=== PATIENT | female | born 1985 | race Hispanic/Latino ===

== ENCOUNTER 2020-04-02 13:27 | Emergency (ER) | payer MEDICAID ==
[2020-04-02 14:02] LABS: #Basophils 0.1 thou/uL (0.0-0.2); #Eosinphils 0.1 thou/uL (0.0-0.7); #Lymphocytes 3.2 thou/uL (1.20-3.40); #Monocytes 0.5 thou/uL (0.11-0.59); #Neutrophils 6.7 thou/uL (1.40-6.50); %Basophils 0.5 % (0.0-1.0); %Eosinophils 1.3 % (0.0-10.0); %Lymphocytes 29.9 % (21.0-51.0); %Monocytes 4.4 % (0.0-10.0); %Neutrophils 63.9 % (42.0-75.0); Hemoglobin 14.1 g/dL (12.0-16.0); Mean Corpuscular Hemoglobin 30.8 pg (27.0-31.0); Mean Corpuscular Volume 90.4 fL (78.0-98.0); Mean Platelet Volume 8.8 fL (7.4-10.4); Platelet Count 278 thou/uL (130-400); RBC Distribution Width 11.6 % (11.5-14.5); White Blood Cell (WBC) Count 10.5 thou/uL (4.8-10.8)
--- NOTE | 2020-04-02 14:46 | ULT ---
TRANSVAGINAL PELVIC ULTRASOUND WITH GREGG SCALE AND COLOR FLOW AND SPECTRAL DOPPLER IMAGING: HISTORY: Positive test with vaginal bleeding and abdominal cramping. FINDINGS: The uterus measures 13.3 x 8.1 x 9.8 cm. The right ovary measures 3.5 x 4.1 x 2.7 cm with demonstrat ion of flow. The left ovary is not visualized. A single intrauterine gestational sac is seen with measurements corresponding to an estimated gestati onal age of 9 weeks 5 days. No heart tones are demonstrated. No subchorionic hemorrhage is se en. There is a 6.6 x 5.2 x 4.8 cyst in the right adnexa adjacent to the right ovary. No free fluid is seen. IMPRESSION: 1. Single intrauterine gestation of 9 weeks 5 days estimated gestational age. No heart tones are seen. 2. A 6.6 x 5.2 x 4.8 cm right adnexal cystic mass. Gynecologic consultation is recommended. POS: OFF
== END 2020-04-02 15:38 | disposition home or self-care (01) ==
LOC: ERS 13:27
DX: O03.4 Incomplete spontaneous abortion without complication (principal); N83.11 Corpus luteum cyst of right ovary
CPT/HCPCS: 36415; 76856; 84702; 85025; 86900; 86901; 94760

== ENCOUNTER 2020-04-04 06:48 | Emergency (ER) | payer MEDICAID ==
[2020-04-04] MEDS ORDERED: Morphine 4 MG/ML VIAL ONE (07:13)
[2020-04-04] MEDS ORDERED: Ondansetron PF 4 MG/2 ML Vial ONE (07:13)
[2020-04-04 07:23] LABS: #Monocytes 0.4 thou/uL (0.11-0.59); #Neutrophils 15.7 thou/uL (1.40-6.50); %Basophils 0.1 % (0.0-1.0); %Eosinophils 0.2 % (0.0-10.0); %Monocytes 2.2 % (0.0-10.0); %Neutrophils 86.6 % (42.0-75.0); Hemoglobin 13.9 g/dL (12.0-16.0); Mean Corpuscular HGB CONC 33.9 g/dL (32.0-36.0); Mean Corpuscular Hemoglobin 30.3 pg (27.0-31.0); Mean Corpuscular Volume 89.3 fL (78.0-98.0); Mean Platelet Volume 8.8 fL (7.4-10.4); Platelet Count 281 thou/uL (130-400); RBC Distribution Width 11.6 % (11.5-14.5); Red Blood Cell (RBC) Count 4.58 mill/uL (4.20-5.40); White Blood Cell (WBC) Count 18.1 thou/uL (4.8-10.8)
[2020-04-04 07:45] LABS: ALT (SGPT) 25 U/L (8-55); AST (SGOT) 25 U/L (5-34); Alkaline Phosphatase 85 U/L (40-110); Anion Gap 16 mmol/L (10-20); BUN (Urea Nitrogen) 8 mg/dL (7.0-18.7); Bilirubin, Total 0.6 mg/dL (0.2-1.2); Calc. Creatinine Clearance 0 mL/min (70-130); Calcium 8.4 mg/dL (7.8-10.44); Carbon Dioxide 15 mmol/L (22-29); Chloride 108 mmol/L (98-107); Estimated GFR-MDRD Greater than 90; Globulin 3.2 g/dL (2.4-3.5); Glucose 117 mg/dL (70-105); Lipase 10 U/L (8-78); Potassium 3.2 mmol/L (3.5-5.1); Protein, Total 7.2 g/dL (6.0-8.3); Sodium 136 mmol/L (136-145)
--- NOTE | 2020-04-04 08:16 | ULT ---
Pelvic sonogram transabdominal and transvaginal imaging with duplex evaluation HISTORY: Pelvic pain and bleeding. Recent spontaneous . FINDINGS: Urinary bladder is incompletely distended. Uterus has a heterogeneous echotexture and is 14 .2 cm length. Endometrium thickened at 2.4 cm with internal heterogeneity. No gestational sac evident. No free fluid in the pelvis. Right ovarian cyst now 5.1 cm greatest diameter, smaller than the prior study when it was 6.6 cm. Good color and spectral Doppler flow. IMPRESSION : Interval spontaneous with residual echogenic endometrial debris, 2.4 cm. Interval decrease in size of right ovarian cyst.
--- NOTE | 2020-04-07 12:54 | EKG ---
Test Reason : Blood Pressure : / mmHG Vent. Rate : 088 BPM Atrial Rate : 088 BPM P-R Int : 152 ms QRS Dur : 084 ms QT Int : 384 ms P-R-T Axes : 037 -01 010 degrees QTc Int : 464 ms Normal sinus rhythm Cannot rule out Anterior infarct , age undetermined Abnormal ECG Confirmed by LUIS ANTONIO ARMSTRONG ([id number]), telegraph editor CHRIS RICHARDSON ([id number] on 04/07/2020 12:53:30 PM Referred By: Confirmed By:LUIS ANTONIO Celis
== END 2020-04-04 08:47 | disposition home or self-care (01) ==
LOC: ERS 06:48
DX: O03.9 Complete or unspecified spontaneous abortion without complication (principal); R11.2 Nausea with vomiting, unspecified
CPT/HCPCS: 36415; 76856; 80053; 83690; 84702; 85025; 88305; 93005; 96374; 96375; J2270; J2405